=== PATIENT | female | born 1955 | race Two or more races ===

== ENCOUNTER 2021-03-28 02:56 | Emergency (ER) | payer MEDICAID ==
[~2021-03-28] VITALS: Ht 165.1 cm; Wt 88.0 kg
[2021-03-28 05:01] LABS: Urine Bacteria FEW /hpf (None Seen); Urine Blood Negative /uL (Negative); Urine Mucus FEW (None Seen); Urine Specific Gravity 1.018 (1.001-1.035); Urine WBC 24 /hpf (0 - 5); Urine WBC Clumps PRESENT /hpf (None Seen)
[2021-03-28 08:30] LABS: Basophils # (auto) 0.1 10 ^3/uL (0-0.2); Basophils % (auto) 1.7 % (0.0-2.0); Eosinophils # (auto) 0.3 10 ^3/uL (0-0.8); Hematocrit 41.6 % (36.0-46.0); Hemoglobin 13.6 g/dL (12.2-16.2); Lymphocytes # (auto) 2.5 10 ^3/uL (0.4-5.4); Lymphocytes % (auto) 36.6 % (10.0-50.0); Mean Corpuscular Hemoglobin 29.2 pg (28.0-32.0); Mean Corpuscular Hgb Conc. 32.6 g/dL (32.0-36.0); Mean Corpuscular Volume 89.5 fL (80.0-100.0); Monocytes # (auto) 0.4 10 ^3/uL (0-1.3); Monocytes % (auto) 6.6 % (0.0-12.0); Neutrophils # (auto) 3.5 10 ^3/uL (1.6-8.6); Neutrophils % (auto) 51.1 % (37.0-80.0); Red Blood Cells 4.65 10^6/uL (4.0-5.20); Red Cell Distribution Width 13.6 % (11.8-14.3); White Blood Cell 6.8 10^3/uL (4.4-10.8)
[2021-03-28 08:45] LABS: Potassium 4.4 mmol/L (3.5-5.1)
[2021-03-28 08:52] LABS: Albumin 3.3 g/dL (3.4-5.0); BUN/Creatinine Ratio 41.9; Bilirubin, Total 0.2 mg/dL (0.2-1.0); Calcium 9.3 mg/dL (8.5-10.1); Total Protein 7.3 g/dL (6.4-8.2)
[2021-03-28] MEDS ORDERED: KETOROLAC TROMETH 30 MG/ML 1ML VIAL IV ONE (09:00)
[2021-03-28] MEDS ORDERED: cefTRIAXone 1GM/50ML D5W 50 ML IV ONE (09:00)
[2021-03-28] MEDS ORDERED: SODIUM CHLORIDE 0.9% 1,000 ML IV ONE (09:00)
[2021-03-28] MEDS ORDERED: METOCLOPRAMIDE HCL 5MG/ml INJ 2ml VIAL IV ONE (09:00)
[2021-03-28] MEDS ORDERED: SODIUM CHLORIDE 0.9% 500 ML IVB ONE (09:00)
[2021-03-28 09:17] LABS: Magnesium 2.4 mg/dL (1.6-2.6)
[2021-03-28 10:00] VITALS: BP 157/61
== END 2021-03-28 11:05 | disposition home or self-care (01) ==
LOC: EDBD 02:56 → ER 02:56
DX: K80.20 Calculus of gallbladder without cholecystitis without obstruction (principal); N39.0 Urinary tract infection, site not specified; E11.21 Type 2 diabetes mellitus with diabetic nephropathy; E11.65 Type 2 diabetes mellitus with hyperglycemia; I10 Essential (primary) hypertension; E78.5 Hyperlipidemia, unspecified
CPT/HCPCS: 36415; 76705; 80053; 81001; 83690; 83735; 85025; 93005; 96365; 96375; 99285; J0696; J1885; J2765; J7030; J7040

== ENCOUNTER 2021-04-14 14:26 | Emergency (ER) | payer MEDICAID ==
[~2021-04-14] VITALS: Ht 165.1 cm; Wt 90.7 kg
[2021-04-14 14:46] VITALS: BP 151/76
== END 2021-04-14 18:05 | disposition left against medical advice (07) ==
LOC: ER 14:26 → EDBD 14:26 → ER 18:05
DX: R51.9 Headache, unspecified (principal); R11.2 Nausea with vomiting, unspecified; Z53.21 Procedure and treatment not carried out due to patient leaving prior to being seen by health care provider
CPT/HCPCS: 70450

== ENCOUNTER 2021-04-22 21:38 | Inpatient (IN) | payer MEDICAID ==
[~2021-04-22] VITALS: Ht 165.1 cm; Wt 94.7 kg
[2021-04-22 23:02] LABS: Basophils # (auto) 0.2 10 ^3/uL (0-0.2); Basophils % (auto) 2.8 % (0.0-2.0); Eosinophils # (auto) 0.1 10 ^3/uL (0-0.8); Eosinophils % (auto) 1.8 % (0.0-7.0); Hematocrit 40.4 % (36.0-46.0); Hemoglobin 13.4 g/dL (12.2-16.2); Lymphocytes # (auto) 2.6 10 ^3/uL (0.4-5.4); Lymphocytes % (auto) 33.4 % (10.0-50.0); Mean Corpuscular Hemoglobin 28.9 pg (28.0-32.0); Mean Corpuscular Hgb Conc. 33.1 g/dL (32.0-36.0); Mean Corpuscular Volume 87.1 fL (80.0-100.0); Monocytes # (auto) 0.5 10 ^3/uL (0-1.3); Monocytes % (auto) 6.2 % (0.0-12.0); Neutrophils # (auto) 4.4 10 ^3/uL (1.6-8.6); Neutrophils % (auto) 55.8 % (37.0-80.0); Nucleated Red Blood Cells % 0.1 %; Red Blood Cells 4.63 10^6/uL (4.0-5.20); Red Cell Distribution Width 13.9 % (11.8-14.3); White Blood Cell 7.9 10^3/uL (4.4-10.8)
[2021-04-22 23:26] LABS: INR 0.99 (0.9-1.15); Partial Thromboplastin Time 24.5 sec (23.6-33.0)
[2021-04-22] MEDS ORDERED: ONDANSETRON HCL 4 MG/2 ML VIAL IV ONE (23:30)
[2021-04-22] MEDS ORDERED: fentaNYL CITRATE 100 MCG/2 ML VL IV ONE (23:30)
[2021-04-23 02:13] LABS: Albumin 3.1 g/dL (3.4-5.0); Calcium 9.6 mg/dL (8.5-10.1); Magnesium 2.2 mg/dL (1.6-2.6); Potassium 3.8 mmol/L (3.5-5.1)
[2021-04-23 02:15] LABS: BUN/Creatinine Ratio 31.2
[2021-04-23 02:20] LABS: Bilirubin, Total 0.4 mg/dL (0.2-1.0); Total Protein 7.2 g/dL (6.4-8.2)
[2021-04-23] MEDS ORDERED: fentaNYL CITRATE 100 MCG/2 ML VL IV ONE (02:30)
[2021-04-23] MEDS ORDERED: DEXTROSE (50%) 50ML SYRG IV PRN (06:30)
[2021-04-23] MEDS ORDERED: MORPHINE SULFATE INJECTION 2 MG/ML SYRG IV PRN (06:30)
[2021-04-23] MEDS ORDERED: NITROGLYCERIN 0.4 MG SL TAB SL PRN (06:30)
[2021-04-23] MEDS: MORPHINE SULFATE 4 MG/ML SYR/VIAL IV PRN ×4 (06:48→20:00)
[2021-04-23] MEDS: SODIUM CHLORIDE 0.9% 1,000 ML IV SCH ×3 (06:49→23:50)
[2021-04-23 08:50] LABS: Basophils # (auto) 0.1 10 ^3/uL (0-0.2); Basophils % (auto) 1.1 % (0.0-2.0); Eosinophils # (auto) 0.1 10 ^3/uL (0-0.8); Eosinophils % (auto) 2.1 % (0.0-7.0); Hematocrit 40.1 % (36.0-46.0); Hemoglobin 13.3 g/dL (12.2-16.2); Mean Corpuscular Hemoglobin 28.9 pg (28.0-32.0); Mean Corpuscular Hgb Conc. 33.1 g/dL (32.0-36.0); Mean Corpuscular Volume 87.3 fL (80.0-100.0); Monocytes # (auto) 0.5 10 ^3/uL (0-1.3); Monocytes % (auto) 7.7 % (0.0-12.0); Neutrophils # (auto) 4.2 10 ^3/uL (1.6-8.6); Neutrophils % (auto) 60.1 % (37.0-80.0); Nucleated Red Blood Cells % 0.1 %; Red Blood Cells 4.59 10^6/uL (4.0-5.20)
[2021-04-23 09:10] LABS: BUN/Creatinine Ratio 29.6; Calcium 9.5 mg/dL (8.5-10.1)
[2021-04-23] MEDS: ENOXAPARIN SOD 40 MG/0.4 ML SYRINGE SC SCH (10:26)
[2021-04-23] MEDS: ONDANSETRON HCL 4 MG/2 ML VIAL IV PRN ×2 (11:01→19:47)
[2021-04-23 12:40] VITALS: BP 149/70
[2021-04-23] MEDS: ACCU-CHEK COMFORT CURVE STRIP VI SCH ×2 (12:58→18:00)
[2021-04-23] MEDS: InsuLIN REG 1unit/0.01ml Soln (100units/ml) SC SCH ×2 (12:59→18:00)
[2021-04-23] MEDS ORDERED: ROSU1TAB13 PO (13:54)
[2021-04-23] MEDS ORDERED: CHOL20002 PO (13:54)
[2021-04-23] MEDS ORDERED: PREG300C49 PO (13:54)
[2021-04-23] MEDS ORDERED: LORA1TAB23 PO (13:54)
[2021-04-23] MEDS ORDERED: FLUT110A INH (13:54)
[2021-04-23] MEDS ORDERED: INSREG3 (13:54)
[2021-04-23] MEDS ORDERED: ESCI5TAB33 PO (13:54)
[2021-04-23] MEDS ORDERED: AMLO-489 PO (13:54)
[2021-04-23] MEDS ORDERED: INSU1INJ19 SC (13:54)
[2021-04-23 14:00] VITALS: BP 149/70
[2021-04-23] MEDS ORDERED: LORazepam 2MG/ML-1ML VIAL IV ONE (14:30)
[2021-04-23 17:00] VITALS: BP 161/82
[2021-04-23] MEDS: SUCRALFATE 1 GM/10 ML ORAL SUSP PO SCH ×2 (18:00→21:07)
[2021-04-23] MEDS: LORazepam 0.5 MG TAB PO PRN (18:34)
[2021-04-23] MEDS: PANTOPRAZOLE 40 MG/10 ML VIAL INJ IV SCH (21:07)
[2021-04-23] MEDS ORDERED: LORazepam 0.5 MG TAB PO PRN (22:00)
[2021-04-23 22:25] VITALS: BP 125/74
[2021-04-24] MEDS: MORPHINE SULFATE 4 MG/ML SYR/VIAL IV PRN ×3 (00:06→08:47)
[2021-04-24] MEDS: ONDANSETRON HCL 4 MG/2 ML VIAL IV PRN ×3 (00:06→08:36)
[2021-04-24] MEDS: ACCU-CHEK COMFORT CURVE STRIP VI SCH ×5 (00:26→23:49)
[2021-04-24 05:00] VITALS: BP 170/73
[2021-04-24] MEDS: SUCRALFATE 1 GM/10 ML ORAL SUSP PO SCH ×4 (05:39→22:29)
[2021-04-24] MEDS: InsuLIN REG 1unit/0.01ml Soln (100units/ml) SC SCH ×5 (05:39→23:53)
[2021-04-24 07:22] LABS: Urine WBC None Seen /hpf (0 - 5)
[2021-04-24 07:46] LABS: Urine Bacteria NONE SEEN /hpf (None Seen); Urine Blood TRACE /uL (Negative); Urine Hyaline Cast FEW /lpf (0 - 2); Urine Specific Gravity 1.019 (1.001-1.035)
[2021-04-24] MEDS: PANTOPRAZOLE 40 MG/10 ML VIAL INJ IV SCH ×2 (08:36→22:29)
[2021-04-24] MEDS: SODIUM CHLORIDE 0.9% 1,000 ML IV SCH ×3 (08:43→23:56)
[2021-04-24 08:53] VITALS: BP 156/70
[2021-04-24] MEDS: ENOXAPARIN SOD 40 MG/0.4 ML SYRINGE SC SCH (10:00)
[2021-04-24] MEDS: LORazepam 0.5 MG TAB PO PRN (10:48)
[2021-04-24] MEDS: amLODIPine BESYLATE 5 MG TAB PO SCH (10:48)
[2021-04-24] MEDS: CHOLECALCIFEROL (VITD3) 2,000 UNIT CAP/TAB PO SCH (10:48)
[2021-04-24 12:30] VITALS: BP 170/70
[2021-04-24] MEDS ORDERED: SODIUM CHLORIDE LOCK 10 ML ONE (12:59)
[2021-04-24] MEDS ORDERED: LIDOCAINE VISCOUS 2% 15ML UD ONE (12:59)
[2021-04-24] MEDS ORDERED: MIDAZOLAM HCL 5 MG/ML-1ML VIAL ONE (13:00)
[2021-04-24] MEDS ORDERED: diphenhdrAMINE HCL 50 MG/1 ML VL ONE (13:00)
[2021-04-24] MEDS ORDERED: fentaNYL CITRATE 100 MCG/2 ML VL ONE (13:00)
[2021-04-24 17:00] VITALS: BP 177/73
[2021-04-24] MEDS: MORPHINE SULFATE INJECTION 2 MG/ML SYRG IV PRN ×2 (17:38→21:05)
[2021-04-24] MEDS: hydrALAZINE HCL 20 MG/ML VL IV PRN ×2 (18:00→23:09)
[2021-04-24] MEDS ORDERED: AMPICILLIN & SULBACTAM SODIUM 3 GM in SODIUM CHL 0.9% 100 ML IV SCH (21:00)
[2021-04-24 22:00] VITALS: BP 169/65
[2021-04-24] MEDS: MUPIROCIN 2% OINT 15gm or 22gm EACHNOSTRI SCH (22:30)
[2021-04-25] MEDS: LORazepam 0.5 MG TAB PO PRN ×2 (00:03→21:21)
[2021-04-25 04:51] VITALS: BP_SYST 164; BP_SYST 168; BP_DIAS 74; BP_DIAS 89
[2021-04-25] MEDS: hydrALAZINE HCL 20 MG/ML VL IV PRN ×2 (04:56→20:03)
[2021-04-25] MEDS: MORPHINE SULFATE INJECTION 2 MG/ML SYRG IV PRN ×5 (05:09→19:46)
[2021-04-25] MEDS: ACCU-CHEK COMFORT CURVE STRIP VI SCH ×4 (05:41→23:36)
[2021-04-25] MEDS: InsuLIN REG 1unit/0.01ml Soln (100units/ml) SC SCH ×4 (05:50→23:37)
[2021-04-25] MEDS: AMPICILLIN & SULBACTAM SODIUM 3 GM in SODIUM CHL 0.9% 100 ML IV SCH ×4 (07:14→23:39)
[2021-04-25] MEDS: SUCRALFATE 1 GM/10 ML ORAL SUSP PO SCH ×4 (07:37→21:21)
[2021-04-25] MEDS: SODIUM CHLORIDE 0.9% 1,000 ML IV SCH ×2 (08:30→16:33)
[2021-04-25 09:00] VITALS: BP 148/59
[2021-04-25] MEDS: CHOLECALCIFEROL (VITD3) 2,000 UNIT CAP/TAB PO SCH (10:12)
[2021-04-25] MEDS: PANTOPRAZOLE 40 MG/10 ML VIAL INJ IV SCH ×2 (10:12→21:21)
[2021-04-25] MEDS: MUPIROCIN 2% OINT 15gm or 22gm EACHNOSTRI SCH ×2 (10:12→21:21)
[2021-04-25] MEDS: ENOXAPARIN SOD 40 MG/0.4 ML SYRINGE SC SCH (10:13)
[2021-04-25] MEDS: amLODIPine BESYLATE 5 MG TAB PO SCH (10:13)
[2021-04-25] MEDS ORDERED: IOHEXOL 300 MG/ML 100ML BOTTLE IJ ONE (10:35)
[2021-04-25 13:13] VITALS: BP 123/86
[2021-04-25 17:18] VITALS: BP 160/78
[2021-04-25 22:16] VITALS: BP 160/70
[2021-04-25 23:02] LABS: Albumin 3.1 g/dL (3.4-5.0); BUN/Creatinine Ratio 20.2; Calcium 9.5 mg/dL (8.5-10.1)
[2021-04-25 23:05] LABS: Bilirubin, Total 0.4 mg/dL (0.2-1.0); Total Protein 6.9 g/dL (6.4-8.2)
[2021-04-26] MEDS: MORPHINE SULFATE INJECTION 2 MG/ML SYRG IV PRN ×7 (00:43→23:57)
[2021-04-26] MEDS: SODIUM CHLORIDE 0.9% 1,000 ML IV SCH ×3 (01:10→15:26)
[2021-04-26 05:22] VITALS: BP 149/61
[2021-04-26] MEDS: ACCU-CHEK COMFORT CURVE STRIP VI SCH ×3 (05:45→16:01)
[2021-04-26] MEDS: InsuLIN REG 1unit/0.01ml Soln (100units/ml) SC SCH ×3 (05:46→16:01)
[2021-04-26] MEDS: AMPICILLIN & SULBACTAM SODIUM 3 GM in SODIUM CHL 0.9% 100 ML IV SCH ×4 (05:48→23:55)
[2021-04-26] MEDS: SUCRALFATE 1 GM/10 ML ORAL SUSP PO SCH ×4 (06:02→21:43)
[2021-04-26 08:30] VITALS: BP 159/80
[2021-04-26] MEDS: CHOLECALCIFEROL (VITD3) 2,000 UNIT CAP/TAB PO SCH (09:56)
[2021-04-26] MEDS: PANTOPRAZOLE 40 MG/10 ML VIAL INJ IV SCH ×2 (09:56→21:43)
[2021-04-26] MEDS: ENOXAPARIN SOD 40 MG/0.4 ML SYRINGE SC SCH (09:57)
[2021-04-26] MEDS: amLODIPine BESYLATE 5 MG TAB PO SCH (09:58)
[2021-04-26] MEDS: LORazepam 0.5 MG TAB PO PRN ×2 (09:59→17:13)
[2021-04-26] MEDS: MUPIROCIN 2% OINT 15gm or 22gm EACHNOSTRI SCH ×3 (09:59→21:58)
[2021-04-26 15:24] LABS: Basophils # (auto) 0.1 10 ^3/uL (0-0.2); Eosinophils # (auto) 0.1 10 ^3/uL (0-0.8); Eosinophils % (auto) 2.1 % (0.0-7.0); Hematocrit 39.6 % (36.0-46.0); Hemoglobin 13.2 g/dL (12.2-16.2); Lymphocytes # (auto) 1.7 10 ^3/uL (0.4-5.4); Lymphocytes % (auto) 27.2 % (10.0-50.0); Mean Corpuscular Hgb Conc. 33.4 g/dL (32.0-36.0); Mean Corpuscular Volume 86.6 fL (80.0-100.0); Monocytes # (auto) 0.6 10 ^3/uL (0-1.3); Monocytes % (auto) 9.1 % (0.0-12.0); Neutrophils # (auto) 3.8 10 ^3/uL (1.6-8.6); Neutrophils % (auto) 60.6 % (37.0-80.0); Nucleated Red Blood Cells % 0.1 %; Red Blood Cells 4.57 10^6/uL (4.0-5.20); Red Cell Distribution Width 13.9 % (11.8-14.3); White Blood Cell 6.4 10^3/uL (4.4-10.8)
[2021-04-26 15:32] LABS: INR 1.02 (0.9-1.15); Partial Thromboplastin Time 27.1 sec (23.6-33.0)
[2021-04-26 15:33] LABS: Albumin 3.2 g/dL (3.4-5.0); Calcium 9.6 mg/dL (8.5-10.1); Potassium 4.2 mmol/L (3.5-5.1)
[2021-04-26 15:37] LABS: BUN/Creatinine Ratio 16.9; Bilirubin, Total 0.4 mg/dL (0.2-1.0); Total Protein 6.8 g/dL (6.4-8.2)
[2021-04-26 17:00] VITALS: BP 164/64
[2021-04-26 17:58] VITALS: BP 141/52
[2021-04-26 21:00] VITALS: BP 166/69
[2021-04-27] MEDS: ACCU-CHEK COMFORT CURVE STRIP VI SCH ×4 (00:17→16:53)
[2021-04-27] MEDS: InsuLIN REG 1unit/0.01ml Soln (100units/ml) SC SCH ×4 (00:17→16:52)
[2021-04-27] MEDS: SODIUM CHLORIDE 0.9% 1,000 ML IV SCH ×3 (02:19→12:15)
[2021-04-27] MEDS: LORazepam 0.5 MG TAB PO PRN ×3 (04:21→16:54)
[2021-04-27] MEDS: MORPHINE SULFATE INJECTION 2 MG/ML SYRG IV PRN ×3 (04:21→21:38)
[2021-04-27 05:00] VITALS: BP 167/72
[2021-04-27] MEDS: AMPICILLIN & SULBACTAM SODIUM 3 GM in SODIUM CHL 0.9% 100 ML IV SCH ×3 (06:03→16:06)
[2021-04-27] MEDS: SUCRALFATE 1 GM/10 ML ORAL SUSP PO SCH ×4 (06:31→23:14)
[2021-04-27] MEDS ORDERED: ADENOSINE 75 MG in GIVE UN-DILUTED 0 ML IV STA (07:42)
[2021-04-27 08:16] VITALS: BP 178/75
[2021-04-27] MEDS: PANTOPRAZOLE 40 MG/10 ML VIAL INJ IV SCH ×2 (09:14→23:14)
[2021-04-27] MEDS: MUPIROCIN 2% OINT 15gm or 22gm EACHNOSTRI SCH ×2 (09:14→23:13)
[2021-04-27] MEDS: ENOXAPARIN SOD 40 MG/0.4 ML SYRINGE SC SCH (09:15)
[2021-04-27] MEDS: CHOLECALCIFEROL (VITD3) 2,000 UNIT CAP/TAB PO SCH (09:15)
[2021-04-27] MEDS: amLODIPine BESYLATE 5 MG TAB PO SCH (09:15)
[2021-04-27] MEDS: hydrALAZINE HCL 20 MG/ML VL IV PRN ×2 (12:14→16:54)
[2021-04-27 13:00] VITALS: BP 180/55
[2021-04-27 17:00] VITALS: BP 151/56
[2021-04-27] MEDS ORDERED: DEXTROSE (50%) 50ML SYRG IV PRN (18:30)
[2021-04-27 22:00] VITALS: BP 156/74
[2021-04-27] MEDS: DOCUSATE SOD 100 MG CAP PO SCH (23:14)
[2021-04-27] MEDS: METOPROLOL TARTRATE 25 MG TAB PO SCH (23:23)
[2021-04-28] MEDS: AMPICILLIN & SULBACTAM SODIUM 3 GM in SODIUM CHL 0.9% 100 ML IV SCH ×4 (00:04→17:38)
[2021-04-28] MEDS: InsuLIN REG 1unit/0.01ml Soln (100units/ml) SC SCH ×4 (00:18→17:40)
[2021-04-28] MEDS: ACCU-CHEK COMFORT CURVE STRIP VI SCH ×4 (00:18→17:38)
[2021-04-28] MEDS: LORazepam 0.5 MG TAB PO PRN ×2 (00:37→15:46)
[2021-04-28] MEDS: SODIUM CHLORIDE 0.9% 1,000 ML IV SCH ×3 (03:10→19:50)
[2021-04-28 05:00] VITALS: BP 152/66
[2021-04-28] MEDS: MORPHINE SULFATE INJECTION 2 MG/ML SYRG IV PRN ×4 (05:08→22:24)
[2021-04-28] MEDS: SUCRALFATE 1 GM/10 ML ORAL SUSP PO SCH ×4 (07:00→22:08)
[2021-04-28 09:00] VITALS: BP 156/66
[2021-04-28] MEDS: CHOLECALCIFEROL (VITD3) 2,000 UNIT CAP/TAB PO SCH (10:00)
[2021-04-28] MEDS: ENOXAPARIN SOD 40 MG/0.4 ML SYRINGE SC SCH (10:00)
[2021-04-28] MEDS: DOCUSATE SOD 100 MG CAP PO SCH ×2 (10:00→22:08)
[2021-04-28] MEDS: METOPROLOL TARTRATE 25 MG TAB PO SCH ×2 (11:11→22:25)
[2021-04-28] MEDS: MUPIROCIN 2% OINT 15gm or 22gm EACHNOSTRI SCH ×2 (11:12→22:07)
[2021-04-28] MEDS: PANTOPRAZOLE 40 MG/10 ML VIAL INJ IV SCH ×2 (11:12→22:08)
[2021-04-28] MEDS: amLODIPine BESYLATE 5 MG TAB PO SCH (11:12)
[2021-04-28 13:00] VITALS: BP 165/70
[2021-04-28 17:00] VITALS: BP 173/65
[2021-04-28] MEDS: hydrALAZINE HCL 20 MG/ML VL IV PRN (17:39)
[2021-04-28 22:15] VITALS: BP 141/74
[2021-04-29] MEDS: AMPICILLIN & SULBACTAM SODIUM 3 GM in SODIUM CHL 0.9% 100 ML IV SCH ×4 (00:57→18:06)
[2021-04-29] MEDS: ACCU-CHEK COMFORT CURVE STRIP VI SCH ×4 (00:58→18:07)
[2021-04-29] MEDS: LORazepam 0.5 MG TAB PO PRN ×2 (00:59→09:23)
[2021-04-29] MEDS: SODIUM CHLORIDE 0.9% 1,000 ML IV SCH ×3 (04:10→20:50)
[2021-04-29 05:13] VITALS: BP 162/68
[2021-04-29] MEDS: InsuLIN REG 1unit/0.01ml Soln (100units/ml) SC SCH ×4 (07:01→18:10)
[2021-04-29] MEDS: SUCRALFATE 1 GM/10 ML ORAL SUSP PO SCH ×4 (07:02→21:33)
[2021-04-29 09:00] VITALS: BP 182/70
[2021-04-29] MEDS: PANTOPRAZOLE 40 MG/10 ML VIAL INJ IV SCH ×2 (09:21→21:33)
[2021-04-29] MEDS: METOPROLOL TARTRATE 25 MG TAB PO SCH ×2 (09:21→21:34)
[2021-04-29] MEDS: amLODIPine BESYLATE 5 MG TAB PO SCH (09:22)
[2021-04-29] MEDS: MUPIROCIN 2% OINT 15gm or 22gm EACHNOSTRI SCH (09:23)
[2021-04-29] MEDS: DOCUSATE SOD 100 MG CAP PO SCH ×2 (09:25→21:34)
[2021-04-29] MEDS: CHOLECALCIFEROL (VITD3) 2,000 UNIT CAP/TAB PO SCH (09:26)
[2021-04-29] MEDS: ENOXAPARIN SOD 40 MG/0.4 ML SYRINGE SC SCH (09:27)
[2021-04-29 12:30] VITALS: BP 150/54
[2021-04-29] MEDS: MORPHINE SULFATE INJECTION 2 MG/ML SYRG IV PRN ×2 (12:34→21:35)
[2021-04-29] MEDS ORDERED: BUPIVACAINE 0.25% INJ 50ML VIAL ONE (13:05)
[2021-04-29] MEDS ORDERED: LIDOCAINE W/ EPINEPHRINE 1% 20ML VIAL ONE (13:05)
[2021-04-29] MEDS ORDERED: MIDAZOLAM HCL 2MG/2ML 2ml VIAL (1mg/ml) ONE (13:44)
[2021-04-29] MEDS ORDERED: fentaNYL CITRATE 100 MCG/2 ML VL ONE (13:44)
[2021-04-29] MEDS ORDERED: MEPERIDINE HCL (50 MG/ML) 1 ML VIAL ONE (13:44)
[2021-04-29] MEDS ORDERED: LABETALOL HCL 5 MG/ML 4ML SYRINGE IV PRN (13:45)
[2021-04-29] MEDS ORDERED: HYDROmorphone HCL 2 MG/ML VL IV PRN (13:45)
[2021-04-29] MEDS ORDERED: MORPHINE SULFATE 4 MG/ML SYR/VIAL IV PRN (13:45)
[2021-04-29] MEDS ORDERED: ONDANSETRON HCL 4 MG/2 ML VIAL IV PRN (13:45)
[2021-04-29] MEDS ORDERED: MIDAZOLAM HCL 2MG/2ML 2ml VIAL (1mg/ml) IV PRN (13:45)
[2021-04-29] MEDS ORDERED: ePHEDrine SULFATE 50 MG/ML AMP IV PRN (13:45)
[2021-04-29] MEDS ORDERED: PROPOFOL 10 MG/ML 20 ML IV ONE (14:25)
[2021-04-29] MEDS ORDERED: DexAMETHasone SOD PHOS 10MG/1ML VIAL INJ ONE (14:25)
[2021-04-29] MEDS ORDERED: LIDOCAINE 1%-Mpf/Epinephrine 1:200,000 ONE (15:37)
[2021-04-29 17:00] VITALS: BP 115/47
[2021-04-29] MEDS ORDERED: ROCURONIUM 10MG/ML 10ML VIAL IV ONE (18:59)
[2021-04-29] MEDS ORDERED: SUCCINYLCHOLINE CHLORIDE 20 MG/ML 10ML VIAL IV ONE (18:59)
[2021-04-29 22:00] VITALS: BP 165/73
[2021-04-30] MEDS: ACCU-CHEK COMFORT CURVE STRIP VI SCH ×4 (00:52→17:58)
[2021-04-30] MEDS: AMPICILLIN & SULBACTAM SODIUM 3 GM in SODIUM CHL 0.9% 100 ML IV SCH ×4 (00:52→17:57)
[2021-04-30] MEDS: InsuLIN REG 1unit/0.01ml Soln (100units/ml) SC SCH ×4 (00:53→18:00)
[2021-04-30] MEDS: hydrALAZINE HCL 20 MG/ML VL IV PRN (01:08)
[2021-04-30] MEDS: LORazepam 0.5 MG TAB PO PRN ×2 (03:10→11:09)
[2021-04-30 05:00] VITALS: BP 150/68
[2021-04-30] MEDS: SODIUM CHLORIDE 0.9% 1,000 ML IV SCH ×2 (06:01→13:30)
[2021-04-30] MEDS: SUCRALFATE 1 GM/10 ML ORAL SUSP PO SCH ×4 (06:02→17:58)
[2021-04-30 09:00] VITALS: BP 157/69
[2021-04-30] MEDS: ENOXAPARIN SOD 40 MG/0.4 ML SYRINGE SC SCH (09:17)
[2021-04-30] MEDS: CHOLECALCIFEROL (VITD3) 2,000 UNIT CAP/TAB PO SCH (09:17)
[2021-04-30] MEDS: PANTOPRAZOLE 40 MG/10 ML VIAL INJ IV SCH (09:17)
[2021-04-30] MEDS: DOCUSATE SOD 100 MG CAP PO SCH (09:17)
[2021-04-30] MEDS: MORPHINE SULFATE INJECTION 2 MG/ML SYRG IV PRN ×2 (09:18→16:23)
[2021-04-30] MEDS: amLODIPine BESYLATE 5 MG TAB PO SCH (09:18)
[2021-04-30] MEDS: METOPROLOL TARTRATE 25 MG TAB PO SCH (09:18)
[2021-04-30 13:00] VITALS: BP 145/102
[2021-04-30 17:00] VITALS: BP 155/65
[2021-04-30 17:15] VITALS: BP 155/65
== END 2021-04-30 19:00 | disposition home health service (06) | DRG 263 ==
LOC: EDBD 21:38 → ER 21:38 → OVERFLOW 04-23 06:20 → WEST WING 04-23 12:13 → CENTRAL 04-26 14:07
PROVIDERS: ADMIT Hospitalist; ATTEND Hospitalist
PROC: 0DB68ZX Excision of Stomach, Via Natural or Artificial Opening Endoscopic, Diagnostic (ICD-10-PCS; 2021-04-24)
PROC: 0DB98ZX Excision of Duodenum, Via Natural or Artificial Opening Endoscopic, Diagnostic (ICD-10-PCS; principal; 2021-04-24 14:15)
PROC: 0FT44ZZ Resection of Gallbladder, Percutaneous Endoscopic Approach (ICD-10-PCS; 2021-04-29)
DX: K80.00 Calculus of gallbladder with acute cholecystitis without obstruction (principal); I21.19 ST elevation (STEMI) myocardial infarction involving other coronary artery of inferior wall; K26.9 Duodenal ulcer, unspecified as acute or chronic, without hemorrhage or perforation; R18.8 Other ascites; E11.40 Type 2 diabetes mellitus with diabetic neuropathy, unspecified; K29.80 Duodenitis without bleeding; I10 Essential (primary) hypertension; K82.8 Other specified diseases of gallbladder; E78.00 Pure hypercholesterolemia, unspecified; E78.5 Hyperlipidemia, unspecified; F11.20 Opioid dependence, uncomplicated; G89.4 Chronic pain syndrome; N39.0 Urinary tract infection, site not specified; I25.10 Atherosclerotic heart disease of native coronary artery without angina pectoris; K29.70 Gastritis, unspecified, without bleeding; K44.9 Diaphragmatic hernia without obstruction or gangrene; Z20.822 Contact with and (suspected) exposure to COVID-19; K66.0 Peritoneal adhesions (postprocedural) (postinfection); Z89.422 Acquired absence of other left toe(s); Z79.4 Long term (current) use of insulin; Z80.6 Family history of leukemia; Z82.49 Family history of ischemic heart disease and other diseases of the circulatory system; Z89.432 Acquired absence of left foot; Z90.49 Acquired absence of other specified parts of digestive tract
CPT/HCPCS: 36415; 43239; 71045; 74177; 76705; 78226; 78452; 80048; 80053; 81001; 82962; 83690; 83735; 83880; 84443; 84484; 85025; 85610; 85730; 86677; 86850; 86900; 86901; 87081; 87426; 93005; 93017; 93306; 96372; 96374; 96375; 96376; C9113; G0378; J0153; J0330; J1100; J1815; J2250; J2405; J2704; J3490

== ENCOUNTER 2021-05-13 07:05 | Emergency (ER) | payer MEDICAID ==
[~2021-05-13] VITALS: Ht 165.1 cm; Wt 88.9 kg
[~2021-05-13 07:05] MED LIST: AMLO-489 PO; CHOL20002 PO; ESCI5TAB33 PO; FLUT110A INH; INSREG3; INSU1INJ19 SC; LORA1TAB23 PO; PREG300C49 PO; ROSU1TAB13 PO
[2021-05-13 08:08] VITALS: BP 175/60
== END 2021-05-13 08:21 | disposition home or self-care (01) ==
LOC: ER 07:05
DX: Z48.02 Encounter for removal of sutures (principal); Z90.710 Acquired absence of both cervix and uterus

== ENCOUNTER 2021-06-21 15:11 | Emergency (ER) | payer MEDICAID ==
[~2021-06-21] VITALS: Ht 165.1 cm; Wt 88.5 kg
[2021-06-21] MEDS ORDERED: cefTRIAXone SOD 1,000 MG VL IM ONE (20:45)
[2021-06-21 22:54] VITALS: BP 140/53
== END 2021-06-21 23:02 | disposition home or self-care (01) ==
LOC: ER 15:11
DX: L03.116 Cellulitis of left lower limb (principal); L03.115 Cellulitis of right lower limb; E11.65 Type 2 diabetes mellitus with hyperglycemia; E66.9 Obesity, unspecified; E11.22 Type 2 diabetes mellitus with diabetic chronic kidney disease; I12.9 Hypertensive chronic kidney disease with stage 1 through stage 4 chronic kidney disease, or unspecified chronic kidney disease; N18.9 Chronic kidney disease, unspecified; E78.5 Hyperlipidemia, unspecified; Z90.49 Acquired absence of other specified parts of digestive tract; Z68.32 Body mass index [BMI] 32.0-32.9, adult; Z88.8 Allergy status to other drugs, medicaments and biological substances
CPT/HCPCS: 96372; 99283; J0696

== ENCOUNTER 2022-01-29 19:46 | Inpatient (IN) | payer MEDICAID ==
[~2022-01-29] VITALS: Ht 165.1 cm; Wt 90.6 kg
[2022-01-29 21:07] LABS: Basophils # (auto) 0.1 10 ^3/uL (0-0.2); Basophils % (auto) 1.1 % (0.0-2.0); Eosinophils # (auto) 0.2 10 ^3/uL (0-0.8); Eosinophils % (auto) 2.3 % (0.0-7.0); Hematocrit 38.5 % (36.0-46.0); Hemoglobin 12.6 g/dL (12.2-16.2); Lymphocytes # (auto) 2.8 10 ^3/uL (0.4-5.4); Lymphocytes % (auto) 33.6 % (10.0-50.0); Mean Corpuscular Hemoglobin 28.9 pg (28.0-32.0); Mean Corpuscular Hgb Conc. 32.8 g/dL (32.0-36.0); Mean Corpuscular Volume 88.1 fL (80.0-100.0); Monocytes # (auto) 0.6 10 ^3/uL (0-1.3); Monocytes % (auto) 7.7 % (0.0-12.0); Neutrophils # (auto) 4.6 10 ^3/uL (1.6-8.6); Neutrophils % (auto) 55.3 % (37.0-80.0); Red Blood Cells 4.37 10^6/uL (4.0-5.20); Red Cell Distribution Width 13.6 % (11.8-14.3); White Blood Cell 8.3 10^3/uL (4.4-10.8)
[2022-01-29 21:51] LABS: BUN/Creatinine Ratio 13.4; Calcium 9.1 mg/dL (8.5-10.1); Potassium 3.6 mmol/L (3.5-5.1)
[2022-01-29 21:54] LABS: Bilirubin, Total 0.3 mg/dL (0.2-1.0); Total Protein 6.3 g/dL (6.4-8.2)
[2022-01-30] MEDS ORDERED: IOHEXOL 300 MG/ML 100ML BOTTLE IJ ONE (04:23)
[2022-01-30] MEDS ORDERED: MORPHINE SULFATE INJ 2 MG/ml SYRG IV ONE (06:00)
[2022-01-30] MEDS ORDERED: ONDANSETRON HCL 4 MG/2 ML VIAL IV ONE ×2 (06:00→09:15)
[2022-01-30] MEDS ORDERED: MORPHINE SULFATE 4 MG/ML SYR/VIAL IV ONE (09:15)
[2022-01-30] MEDS ORDERED: PANTOPRAZOLE 40 MG/10 ML VIAL INJ IV ONE (11:30)
[2022-01-30] MEDS ORDERED: SUCRALFATE 1 GM/10 ML ORAL SUSP PO ONE (11:30)
[2022-01-30] MEDS ORDERED: ONDANSETRON HCL 4 MG/2 ML VIAL IV PRN (13:15)
[2022-01-30] MEDS: ENOXAPARIN SOD 40 MG/0.4 ML SYRINGE SC SCH (15:03)
[2022-01-30] MEDS: KETOROLAC TROMETH 30 MG/ML 1ML VIAL IV PRN ×2 (15:06→22:20)
[2022-01-30] MEDS ORDERED: DEXTROSE (50%) 50ML SYRG IV PRN (15:15)
[2022-01-30 17:09] LABS: INR 0.95 (0.9-1.15)
[2022-01-30 17:10] LABS: Cholesterol 111 mg/dL (< 200)
[2022-01-30 17:12] LABS: HDL Cholesterol 60 mg/dL (40-59); LDL Cholesterol 46 mg/dL (< 100); Triglycerides 127 mg/dL (< 150)
[2022-01-30] MEDS: InsuLIN REG 1unit/0.01ml Soln (100units/ml) SC SCH ×2 (17:37→22:42)
[2022-01-30] MEDS: ACCU-CHEK COMFORT CURVE STRIP VI SCH ×2 (17:37→22:20)
[2022-01-30] MEDS ORDERED: cefTRIAXone 1GM/50ML D5W 50 ML IV ONE (18:45)
[2022-01-30] MEDS: metroNIDAZOLE 500MG/100ML 100 ML IV SCH (21:51)
[2022-01-30] MEDS: hydrALAZINE HCL 20 MG/ML VL IV PRN (22:42)
[2022-01-31 00:13] VITALS: BP 171/65
[2022-01-31] MEDS: KETOROLAC TROMETH 30 MG/ML 1ML VIAL IV PRN ×2 (05:00→21:54)
[2022-01-31] MEDS: ACCU-CHEK COMFORT CURVE STRIP VI SCH ×4 (06:49→21:53)
[2022-01-31] MEDS: metroNIDAZOLE 500MG/100ML 100 ML IV SCH ×3 (06:50→21:53)
[2022-01-31 06:54] LABS: Basophils # (auto) 0.1 10 ^3/uL (0-0.2); Eosinophils # (auto) 0.3 10 ^3/uL (0-0.8); Eosinophils % (auto) 4.8 % (0.0-7.0); Hematocrit 39.2 % (36.0-46.0); Hemoglobin 12.9 g/dL (12.2-16.2); Lymphocytes # (auto) 1.9 10 ^3/uL (0.4-5.4); Lymphocytes % (auto) 30.1 % (10.0-50.0); Mean Corpuscular Hemoglobin 29.5 pg (28.0-32.0); Mean Corpuscular Hgb Conc. 32.8 g/dL (32.0-36.0); Monocytes # (auto) 0.6 10 ^3/uL (0-1.3); Monocytes % (auto) 8.9 % (0.0-12.0); Neutrophils # (auto) 3.5 10 ^3/uL (1.6-8.6); Neutrophils % (auto) 55.2 % (37.0-80.0); Nucleated Red Blood Cells % 0.1 %; Red Blood Cells 4.35 10^6/uL (4.0-5.20); Red Cell Distribution Width 13.6 % (11.8-14.3); White Blood Cell 6.4 10^3/uL (4.4-10.8)
[2022-01-31] MEDS: InsuLIN REG 1unit/0.01ml Soln (100units/ml) SC SCH ×4 (06:58→22:19)
[2022-01-31] MEDS: hydrALAZINE HCL 20 MG/ML VL IV PRN ×2 (07:09→23:11)
[2022-01-31 07:12] LABS: Albumin 2.7 g/dL (3.4-5.0); Anion Gap 8 (5-15); Blood Urea Nitrogen 13 mg/dL (7-18); Calcium 8.9 mg/dL (8.5-10.1); Carbon Dioxide 23 mmol/L (21-32); Chloride 113 mmol/L (98-107); Glucose 147 mg/dL (74-106); Potassium 3.6 mmol/L (3.5-5.1); Sodium 144 mmol/L (136-145)
[2022-01-31 07:15] LABS: Alanine Aminotransferase 20 U/L (13-56); Aspartate Aminotransferase 21 U/L (15-37); BUN/Creatinine Ratio 11.3; GFR African American 61 mL/min; GFR Non-African American 50 mL/min
[2022-01-31 07:17] LABS: Alkaline Phosphatase 102 U/L (45-117); Bilirubin, Total 0.3 mg/dL (0.2-1.0); Total Protein 6.5 g/dL (6.4-8.2)
[2022-01-31 08:40] LABS: Urine Bacteria NONE SEEN /hpf (None Seen); Urine Blood Negative /uL (Negative); Urine Budding Yeast FEW /hpf (None Seen); Urine Hyaline Cast FEW /lpf (0 - 2); Urine Mucus FEW (None Seen); Urine WBC 21 /hpf (0 - 5)
[2022-01-31 09:00] VITALS: BP 133/72
[2022-01-31] MEDS: cefTRIAXone 1GM/50ML D5W 50 ML IV SCH (10:10)
[2022-01-31 13:00] VITALS: BP 162/60
[2022-01-31 17:04] VITALS: BP 132/70
[2022-01-31] MEDS: amLODIPine BESYLATE 5 MG TAB PO SCH (21:54)
[2022-01-31 22:00] VITALS: BP 176/67
[2022-01-31] MEDS: FLUTICASONE PROP NASAL SPR 0.05 % (50MCG) 16GM EACHNOSTRI SCH (22:00)
[2022-02-01 05:00] VITALS: BP 161/62
[2022-02-01 05:28] LABS: Basophils # (auto) 0.1 10 ^3/uL (0-0.2); Basophils % (auto) 1.3 % (0.0-2.0); Eosinophils # (auto) 0.1 10 ^3/uL (0-0.8); Eosinophils % (auto) 1.7 % (0.0-7.0); Lymphocytes # (auto) 1.5 10 ^3/uL (0.4-5.4); Lymphocytes % (auto) 27.1 % (10.0-50.0); Mean Corpuscular Hemoglobin 28.6 pg (28.0-32.0); Mean Corpuscular Hgb Conc. 32.4 g/dL (32.0-36.0); Mean Corpuscular Volume 88.2 fL (80.0-100.0); Monocytes # (auto) 0.5 10 ^3/uL (0-1.3); Monocytes % (auto) 8.6 % (0.0-12.0); Neutrophils # (auto) 3.4 10 ^3/uL (1.6-8.6); Neutrophils % (auto) 61.3 % (37.0-80.0); Red Blood Cells 4.54 10^6/uL (4.0-5.20); Red Cell Distribution Width 13.6 % (11.8-14.3); White Blood Cell 5.5 10^3/uL (4.4-10.8)
[2022-02-01 05:48] LABS: BUN/Creatinine Ratio 10.5; Potassium 3.2 mmol/L (3.5-5.1)
[2022-02-01] MEDS: metroNIDAZOLE 500MG/100ML 100 ML IV SCH ×3 (05:48→21:19)
[2022-02-01] MEDS: ACCU-CHEK COMFORT CURVE STRIP VI SCH ×4 (06:01→21:12)
[2022-02-01] MEDS: InsuLIN REG 1unit/0.01ml Soln (100units/ml) SC SCH ×4 (06:02→21:15)
[2022-02-01] MEDS: hydrALAZINE HCL 20 MG/ML VL IV PRN (06:06)
[2022-02-01] MEDS: cefTRIAXone 1GM/50ML D5W 50 ML IV SCH (09:04)
[2022-02-01] MEDS: FLUTICASONE PROP NASAL SPR 0.05 % (50MCG) 16GM EACHNOSTRI SCH ×2 (09:05→21:20)
[2022-02-01] MEDS: ENOXAPARIN SOD 40 MG/0.4 ML SYRINGE SC SCH (09:05)
[2022-02-01 09:10] VITALS: BP 143/47
[2022-02-01] MEDS: amLODIPine BESYLATE 5 MG TAB PO SCH (09:30)
[2022-02-01 13:15] VITALS: BP 159/61
[2022-02-01] MEDS ORDERED: HYDROcodone-ACET 5/325MG TAB PO PRN (16:45)
[2022-02-01 17:19] VITALS: BP 140/64
[2022-02-01] MEDS: KETOROLAC TROMETH 30 MG/ML 1ML VIAL IV PRN (20:21)
[2022-02-01] MEDS ORDERED: CYCL0.05 EACHEYE (20:46)
[2022-02-01] MEDS ORDERED: ERYT2GEL EX (20:46)
[2022-02-01] MEDS: PREGABALIN CAPSULE 75 MG CAP PO SCH (21:20)
[2022-02-01 22:00] VITALS: BP 157/58
[2022-02-02] MEDS: KETOROLAC TROMETH 30 MG/ML 1ML VIAL IV PRN ×2 (02:35→08:39)
[2022-02-02 05:00] VITALS: BP 149/66
[2022-02-02] MEDS: metroNIDAZOLE 500MG/100ML 100 ML IV SCH ×3 (05:18→21:50)
[2022-02-02] MEDS: ACCU-CHEK COMFORT CURVE STRIP VI SCH ×3 (06:21→22:03)
[2022-02-02] MEDS: InsuLIN REG 1unit/0.01ml Soln (100units/ml) SC SCH ×2 (06:23→17:39)
[2022-02-02 07:04] LABS: Basophils # (auto) 0.1 10 ^3/uL (0-0.2); Eosinophils # (auto) 0.1 10 ^3/uL (0-0.8); Eosinophils % (auto) 2.5 % (0.0-7.0); Hematocrit 38.8 % (36.0-46.0); Hemoglobin 12.9 g/dL (12.2-16.2); Lymphocytes # (auto) 1.8 10 ^3/uL (0.4-5.4); Lymphocytes % (auto) 33.2 % (10.0-50.0); Mean Corpuscular Hemoglobin 29.3 pg (28.0-32.0); Mean Corpuscular Hgb Conc. 33.1 g/dL (32.0-36.0); Mean Corpuscular Volume 88.4 fL (80.0-100.0); Monocytes # (auto) 0.5 10 ^3/uL (0-1.3); Monocytes % (auto) 8.9 % (0.0-12.0); Neutrophils % (auto) 54.4 % (37.0-80.0); Red Blood Cells 4.39 10^6/uL (4.0-5.20); Red Cell Distribution Width 13.7 % (11.8-14.3); White Blood Cell 5.5 10^3/uL (4.4-10.8)
[2022-02-02 07:13] LABS: Albumin 2.7 g/dL (3.4-5.0); Calcium 8.8 mg/dL (8.5-10.1); Potassium 3.2 mmol/L (3.5-5.1)
[2022-02-02 07:17] LABS: BUN/Creatinine Ratio 11.2
[2022-02-02 07:18] LABS: Bilirubin, Total 0.5 mg/dL (0.2-1.0); Total Protein 6.3 g/dL (6.4-8.2)
[2022-02-02] MEDS: PREGABALIN CAPSULE 75 MG CAP PO SCH ×2 (08:39→21:50)
[2022-02-02] MEDS: ENOXAPARIN SOD 40 MG/0.4 ML SYRINGE SC SCH (08:39)
[2022-02-02] MEDS: cefTRIAXone 1GM/50ML D5W 50 ML IV SCH (08:40)
[2022-02-02] MEDS: FLUTICASONE PROP NASAL SPR 0.05 % (50MCG) 16GM EACHNOSTRI SCH ×2 (08:40→22:00)
[2022-02-02] MEDS: amLODIPine BESYLATE 5 MG TAB PO SCH (08:41)
[2022-02-02 09:00] VITALS: BP 139/54
[2022-02-02] MEDS ORDERED: POTASSIUM EFFERVESENT TAB 25 MEQ PO ONE (12:00)
[2022-02-02] MEDS ORDERED: DEXTROSE (50%) 50ML SYRG IV PRN (12:45)
[2022-02-02] MEDS ORDERED: InsuLIN REG 1unit/0.01ml Soln (100units/ml) SC SCH ×2 (12:45→22:00)
[2022-02-02] MEDS ORDERED: INSULIN LANTUS (GLARGINE) 1 /0.01ml (100units/ml) SC ONE (12:45)
[2022-02-02 13:00] VITALS: BP 122/62
[2022-02-02] MEDS: MORPHINE SULFATE INJ 2 MG/ml SYRG IV PRN ×3 (13:00→22:10)
[2022-02-02] MEDS ORDERED: CYCLOSPORINE 0.05% OP ONE (16:00)
[2022-02-02] MEDS ORDERED: PATIENTS OWN MEDICATION OP ONE (16:15)
[2022-02-02 17:00] VITALS: BP 114/57
[2022-02-02] MEDS: ERYTHROMYCIN OP SCH ×2 (17:34→22:03)
[2022-02-02 22:00] VITALS: BP 118/51
[2022-02-03] MEDS: KETOROLAC TROMETH 30 MG/ML 1ML VIAL IV PRN ×2 (03:37→16:33)
[2022-02-03 05:00] VITALS: BP 125/43
[2022-02-03] MEDS: metroNIDAZOLE 500MG/100ML 100 ML IV SCH ×2 (05:24→13:28)
[2022-02-03] MEDS: ERYTHROMYCIN OP SCH ×2 (06:15→13:29)
[2022-02-03] MEDS: ACCU-CHEK COMFORT CURVE STRIP VI SCH ×3 (06:16→16:40)
[2022-02-03] MEDS: InsuLIN REG 1unit/0.01ml Soln (100units/ml) SC SCH ×3 (06:21→17:00)
[2022-02-03] MEDS ORDERED: INSULIN LANTUS (GLARGINE) 1 /0.01ml (100units/ml) SC SCH (07:00)
[2022-02-03 09:00] VITALS: BP_SYST 118; BP_SYST 126; BP_DIAS 54; BP_DIAS 61
[2022-02-03] MEDS: cefTRIAXone 1GM/50ML D5W 50 ML IV SCH (09:45)
[2022-02-03] MEDS: amLODIPine BESYLATE 5 MG TAB PO SCH (09:46)
[2022-02-03] MEDS: MORPHINE SULFATE INJ 2 MG/ml SYRG IV PRN (09:46)
[2022-02-03] MEDS: ENOXAPARIN SOD 40 MG/0.4 ML SYRINGE SC SCH (09:47)
[2022-02-03] MEDS: FLUTICASONE PROP NASAL SPR 0.05 % (50MCG) 16GM EACHNOSTRI SCH (10:00)
[2022-02-03] MEDS ORDERED: CYCLOSPORINE 0.05% OP SCH (10:00)
[2022-02-03] MEDS ORDERED: CIPR-173 PO (10:21)
[2022-02-03] MEDS ORDERED: METR500T PO (10:21)
[2022-02-03] MEDS: PREGABALIN CAPSULE 75 MG CAP PO SCH (11:35)
[2022-02-03 13:00] VITALS: BP 146/52
[2022-02-03 17:08] VITALS: BP 125/56
== END 2022-02-03 19:45 | disposition home health service (06) ==
LOC: EDBD 19:46 → ER 19:46 → EDUNIT# 19:46 → OVERFLOW 01-30 13:17 → WEST WING 01-30 21:48
PROVIDERS: ADMIT Registered Nurse; ATTEND Internal Medicine Pulmonary Disease
PROC: 05HC33Z Insertion of Infusion Device into Left Basilic Vein, Percutaneous Approach (ICD-10-PCS; principal; 2022-02-01)
PROC: B54NZZA Ultrasonography of Left Upper Extremity Veins, Guidance (ICD-10-PCS; 2022-02-01)
DX: K83.8 Other specified diseases of biliary tract (principal); K57.92 Diverticulitis of intestine, part unspecified, without perforation or abscess without bleeding; E11.22 Type 2 diabetes mellitus with diabetic chronic kidney disease; E66.01 Morbid (severe) obesity due to excess calories; N18.31 Chronic kidney disease, stage 3a; E11.65 Type 2 diabetes mellitus with hyperglycemia; E78.5 Hyperlipidemia, unspecified; L03.115 Cellulitis of right lower limb; I12.9 Hypertensive chronic kidney disease with stage 1 through stage 4 chronic kidney disease, or unspecified chronic kidney disease; Z20.822 Contact with and (suspected) exposure to COVID-19; K29.90 Gastroduodenitis, unspecified, without bleeding; M94.0 Chondrocostal junction syndrome [Tietze]; Z80.6 Family history of leukemia; Z82.49 Family history of ischemic heart disease and other diseases of the circulatory system; Z90.49 Acquired absence of other specified parts of digestive tract; Z90.711 Acquired absence of uterus with remaining cervical stump; Z88.8 Allergy status to other drugs, medicaments and biological substances; Z68.32 Body mass index [BMI] 32.0-32.9, adult; Z79.84 Long term (current) use of oral hypoglycemic drugs
CPT/HCPCS: 36415; 74177; 74181; 76705; 80048; 80053; 80061; 81001; 82962; 83036; 83605; 83690; 84484; 85025; 85610; 93005; 96374; 96375; 96376; C9113; G0378; J0696; J1815; J1885; J2405; J3490

== ENCOUNTER 2022-03-14 01:07 | Emergency (ER) | payer MEDICAID ==
[~2022-03-14] VITALS: Ht 165.1 cm; Wt 81.5 kg
[~2022-03-14 01:07] MED LIST changes: +CIPR-173 PO; +CYCL0.05 EACHEYE; +ERYT2GEL EX; +METR500T PO
[2022-03-14] MEDS ORDERED: HYDROcodone-ACET 5/325MG TAB PO ONE ×2 (02:45→05:00)
[2022-03-14 03:00] LABS: Basophils # (auto) 0.1 10 ^3/uL (0-0.2); Basophils % (auto) 1.2 % (0.0-2.0); Eosinophils # (auto) 0.1 10 ^3/uL (0-0.8); Eosinophils % (auto) 2.2 % (0.0-7.0); Hematocrit 42.6 % (36.0-46.0); Hemoglobin 14.5 g/dL (12.2-16.2); Lymphocytes # (auto) 2.3 10 ^3/uL (0.4-5.4); Lymphocytes % (auto) 34.2 % (10.0-50.0); Mean Corpuscular Hgb Conc. 34.1 g/dL (32.0-36.0); Mean Corpuscular Volume 87.8 fL (80.0-100.0); Monocytes # (auto) 0.5 10 ^3/uL (0-1.3); Monocytes % (auto) 7.7 % (0.0-12.0); Neutrophils # (auto) 3.6 10 ^3/uL (1.6-8.6); Neutrophils % (auto) 54.7 % (37.0-80.0); Nucleated Red Blood Cells % 0.1 %; Red Blood Cells 4.85 10^6/uL (4.0-5.20); Red Cell Distribution Width 13.7 % (11.8-14.3); White Blood Cell 6.6 10^3/uL (4.4-10.8)
[2022-03-14 03:18] LABS: Albumin 3.4 g/dL (3.4-5.0); Calcium 9.2 mg/dL (8.5-10.1); Magnesium 1.8 mg/dL (1.6-2.6); Potassium 3.8 mmol/L (3.5-5.1)
[2022-03-14 03:23] LABS: BUN/Creatinine Ratio 15.9; Bilirubin, Total 0.4 mg/dL (0.2-1.0); Total Protein 7.2 g/dL (6.4-8.2)
[2022-03-14] MEDS ORDERED: KETOROLAC TROMETH 30 MG/ML 1ML VIAL IM ONE (05:00)
[2022-03-14] MEDS ORDERED: HYDR-4798 PO (05:07)
[2022-03-14 06:31] VITALS: BP 121/55
== END 2022-03-14 05:08 | disposition home or self-care (01) ==
LOC: EDUNIT# 01:07 → EDBD 01:07 → ER 01:09
DX: R10.11 Right upper quadrant pain (principal); I12.9 Hypertensive chronic kidney disease with stage 1 through stage 4 chronic kidney disease, or unspecified chronic kidney disease; E11.22 Type 2 diabetes mellitus with diabetic chronic kidney disease; N18.9 Chronic kidney disease, unspecified; E78.5 Hyperlipidemia, unspecified; J45.909 Unspecified asthma, uncomplicated; Z90.49 Acquired absence of other specified parts of digestive tract; Z90.710 Acquired absence of both cervix and uterus; Z79.4 Long term (current) use of insulin; Z79.899 Other long term (current) drug therapy; Z88.8 Allergy status to other drugs, medicaments and biological substances
CPT/HCPCS: 36415; 71045; 80053; 83690; 83735; 84484; 85025; 93005; 96372; 99285; J1885